=== PATIENT | female | born 1985 ===

== ENCOUNTER 2023-06-14 00:33 | Emergency (ER) | payer MEDICAID, OTHER ==
[~2023-06-14] VITALS: Ht 160 cm; Wt 58.2 kg
[2023-06-14 00:44] VITALS: BP 113/62; PULSE 78; RESP 16; O2SAT 97
== END 2023-06-14 01:58 | disposition left against medical advice (07) ==
LOC: ER 00:33
DX: R22.0 Localized swelling, mass and lump, head (principal); Z53.21 Procedure and treatment not carried out due to patient leaving prior to being seen by health care provider